=== PATIENT | female | born 1990 | race Caucasian/White ===

== ENCOUNTER 2025-01-09 00:38 | Emergency (ER) | payer SELFPAY ==
[~2025-01-09] VITALS: Ht 165.1 cm; Wt 75.0 kg
[2025-01-09 00:40] VITALS: BP 131/85; PULSE 108; RESP 12; TEMP 37.4; O2SAT 96
== END 2025-01-09 06:19 | disposition home or self-care (01) ==
LOC: ER 00:38
DX: F10.129 Alcohol abuse with intoxication, unspecified (principal); Y90.9 Presence of alcohol in blood, level not specified
CPT/HCPCS: 82962; 99283